=== PATIENT | female | born 1955 | race Caucasian/White ===

== ENCOUNTER 2017-05-04 11:11 | Day surgery (SDC) | payer OTHER ==
[2017-04-29 12:52] VITALS: BMI 25.0
[2017-05-04] MEDS ORDERED: PROPOFOL 20 ML ONE ×2 (11:34)
[2017-05-04 12:46] VITALS: TEMP 97.7
[2017-05-04 13:05] VITALS: BP 135/90; PULSE 60
--- NOTE | 2017-05-06 15:41 | PATH ---
Surgical Pathology Report Patient Name: BORIS [facility]. Rec. #: [id number] /Age/Gender: 1955 (Age: 62) / F Account: [id number] [facility] Taken: 05/04/2017 Received: 05/04/2017 Reported: 05/06/2017 Physicians: Braydon Tirado M.D. Specimen(s) Received A: BX DUODENUM B: BX ANTRUM Clinical History Peptic ulcer disease, family history of colonic polyps Rule out celiac disease, abdominal pain, duodenitis Final Diagnosis A. DUODENUM, BIOPSY: MODERATE CHRONIC DUODENITIS WITH RADHA GLAND HYPERPLASIA. Note: Features suggestive of celiac disease are not identified in this biopsy. B. ANTRUM, BIOPSY: MODERATE CHRONIC GASTRITIS. IMMUNOSTAIN IS NEGATIVE H PYLORI ORGANISMS. Electronically Signed Tena Martinez M.D. Gross Description A. Received in formalin, labeled "duodenum" are 2 elena, irregular portions of soft tissue averaging 0.3 cm. in greatest dimension. The specimens are submitted in toto in one cassette. B. Received in formalin, labeled "antrum" are 2 elena, irregular portions of soft tissue averaging 0.3 cm. in greatest dimension. The specimens are submitted in toto in one cassette. 05/05/201705/05/2017
== END 2017-05-04 13:15 | disposition home or self-care (01) ==
LOC: FASU-ENDO 11:11 → EDBD 12:15 → FASU-ENDO 13:15
PROVIDERS: ATTEND Internal Medicine Gastroenterology
PROC: 0DB68ZX Excision of Stomach, Via Natural or Artificial Opening Endoscopic, Diagnostic (ICD-10-PCS; 2017-05-04)
PROC: 0DJD8ZZ Inspection of Lower Intestinal Tract, Via Natural or Artificial Opening Endoscopic (ICD-10-PCS; principal; 2017-05-04 11:57)
PROC: 0DB98ZX Excision of Duodenum, Via Natural or Artificial Opening Endoscopic, Diagnostic (ICD-10-PCS; 2017-05-04 11:57)
DX: Z12.11 Encounter for screening for malignant neoplasm of colon (principal); Z80.0 Family history of malignant neoplasm of digestive organs; K57.30 Diverticulosis of large intestine without perforation or abscess without bleeding; K64.8 Other hemorrhoids; K29.80 Duodenitis without bleeding; K20.9 Esophagitis, unspecified; K29.50 Unspecified chronic gastritis without bleeding; K31.89 Other diseases of stomach and duodenum
CPT/HCPCS: 43239; G0121; 88305-TC; 88342-TC